=== PATIENT | female | born 1955 ===

== ENCOUNTER 2017-01-31 13:47 | Inpatient (IN) | payer OTHER ==
[2017-01-31 13:55] VITALS: BMI 34.3
[2017-01-31] MEDS ORDERED: Oxycodone/Acetaminophen 5/325 mg Tab PO STA (14:10)
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
[2017-01-31 15:43] LABS: ADD MANUAL DIFF? NO
[2017-01-31 15:52] LABS: BASO # 0.03 K/mm3 (0.0-2.0); BASO % 0.2 % (0.0-3.0); EOS # 0.1 (0.0-0.7); EOS % 0.7 % (1.5-5.0); GRAN # 13.07 (1.4-6.5); LYMPH # 2.1 (1.2-3.4); LYMPH % 12.7 % (22.0-35.0); MEAN CORPUSCULAR HEMOGLOBIN 29.2 pg (25.0-35.0); MEAN CORPUSCULAR HGB CONC 33.6 g/dl (31.0-37.0); MEAN PLATELET VOLUME 9.9 fl (7.0-11.0); MONO # 0.9 (0.1-0.6); MONO % 5.4 % (1.0-6.0); PLATELET COUNT 359 10^3/uL (120.0-450.0); RED CELL DISTRIBUTION WIDTH 13.6 % (11.5-14.5); WHITE BLOOD COUNT 16.1 10^3/ul (4.5-11.0)
[2017-01-31 15:58] LABS: ALKALINE PHOSPHATASE 86 U/L (38-133); ALT/SGPT 39 U/L (7-56); AST/SGOT 37 U/L (15-39); BILIRUBIN,TOTAL 0.7 mg/dL (0.2-1.3); BLOOD UREA NITROGEN 18 mg/dL (7-21); CALCIUM 9.8 mg/dL (8.4-10.5); CARBON DIOXIDE 25 mmol/L (21-33); CHLORIDE 101 mmol/L (98-107); GFR AFRICAN-AMERICAN > 60; GLUCOSE,RANDOM 107 mg/dL (70-110); INR 0.96 (0.93-1.08); POTASSIUM 4.1 mmol/L (3.6-5.0); SODIUM 138 mmol/L (132-148); TOTAL PROTEIN 8.6 g/dL (5.8-8.3)
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
[2017-01-31] MEDS ORDERED: HYDROmorphone 1 mg/ml ISec IVP STA (17:32)
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
[2017-01-31] MEDS: Sodium Chloride 0.45% 1,000 ML IV SCH (20:48)
[2017-01-31] MEDS: HYDROmorphone 2 mg/ml ISec IVP PRN (20:48)
[2017-02-01] MEDS: HYDROmorphone 2 mg/ml ISec IVP PRN ×7 (00:46→20:09)
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
[2017-02-01 07:07] LABS: HEMATOCRIT 34.3 % (36.0-48.0); MEAN CELL VOLUME 88.2 fL (80.0-105.0); MEAN CORPUSCULAR HGB CONC 32.9 g/dl (31.0-37.0); MEAN PLATELET VOLUME 9.7 fl (7.0-11.0); RED CELL DISTRIBUTION WIDTH 14.2 % (11.5-14.5); WHITE BLOOD COUNT 9.7 10^3/ul (4.5-11.0)
[2017-02-01 07:42] LABS: ALKALINE PHOSPHATASE 103 U/L (38-133); ALT/SGPT 91 U/L (7-56); AST/SGOT 115 U/L (15-39); BILIRUBIN,TOTAL 0.9 mg/dL (0.2-1.3); BLOOD UREA NITROGEN 18 mg/dL (7-21); CARBON DIOXIDE 27 mmol/L (21-33); CHLORIDE 104 mmol/L (95-110); GFR AFRICAN-AMERICAN > 60; GLUCOSE,RANDOM 109 mg/dL (70-110); POTASSIUM 4.4 mmol/L (3.6-5.0); SODIUM 140 mmol/L (132-148); TOTAL PROTEIN 7.9 g/dL (5.8-8.3)
[2017-02-01 07:45] LABS: URINE BILIRUBIN NEGATIVE (NEGATIVE); URINE BLOOD MODERATE (NEGATIVE); URINE GLUCOSE (UA) NEGATIVE (NEGATIVE); URINE KETONE NEGATIVE (NEGATIVE); URINE LEUKOCYTE ESTERASE NEGATIVE Leu/uL (NEGATIVE); URINE PROTEIN NEGATIVE mg/dL (<30 mg/dL); URINE UROBILINOGEN 0.2 E.U./dL (<1 E.U./dL)
[2017-02-01 07:52] LABS: URINE APPEARANCE SL CLOUDY (CLEAR); URINE COLOR YELLOW (YELLOW)
[2017-02-01 07:53] LABS: URINE WBC NEGATIVE /hpf (0-6)
--- NOTE | 2017-02-01 09:04 | RAD ---
PROCEDURE: CHEST RADIOGRAPH, 1 VIEW HISTORY: pre op COMPARISON: None available. FINDINGS: LUNGS: Clear. PLEURA: No pneumothorax or pleural fluid seen. CARDIOVASCULAR: Normal. OSSEOUS STRUCTURES: No significant abnormalities. VISUALIZED UPPER ABDOMEN: Normal. OTHER FINDINGS: None. IMPRESSION: No active disease.
[2017-02-01] MEDS: cefTRIAXone 1 gm 1 GM/100 ML BAG IVPB SCH (09:42)
--- NOTE | 2017-02-01 09:53 | CT ---
PROCEDURE: CT of the left elbow HISTORY: CT scan Left elbow, preop planning COMPARISON: 01/31/2017 TECHNIQUE: Axial imaging with sagittal and coronal reconstruction and 3D reconstruction FINDINGS: There is a comminuted displaced fracture of the proximal shaft of the ulna. The fracture does not extend into the articular surface. There is a displaced fracture of the radial head as well as dislocation of the radial capitellar joint. IMPRESSION: As above
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
--- NOTE | 2017-02-01 16:52 | CARD ---
APPROVED REPORT EKG Measurement Heart [id number] <Conclusion> Sinus tachycardia Otherwise normal ECG
[2017-02-02] MEDS: HYDROmorphone 2 mg/ml ISec IVP PRN ×2 (02:38→20:14)
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
[2017-02-02] MEDS: cefTRIAXone 1 gm 1 GM/100 ML BAG IVPB SCH (10:09)
[2017-02-02 10:51] LABS: HEMATOCRIT 33.8 % (36.0-48.0); MEAN CELL VOLUME 91.1 fL (80.0-105.0); MEAN CORPUSCULAR HEMOGLOBIN 29.1 pg (25.0-35.0); MEAN PLATELET VOLUME 9.7 fl (7.0-11.0); WHITE BLOOD COUNT 13.4 10^3/ul (4.5-11.0)
[2017-02-02] MEDS ORDERED: Midazolam 2 MG/2 ML VIAL ONE (10:57)
[2017-02-02] MEDS ORDERED: Propofol 10 mg/ml Inj (20 ML) ONE (10:57)
[2017-02-02] MEDS ORDERED: Rocuronium 10 mg/ml (5 ml) ONE ×2 (10:58→12:26)
[2017-02-02 11:02] LABS: ALKALINE PHOSPHATASE 90 U/L (38-133); ALT/SGPT 64 U/L (7-56); AST/SGOT 59 U/L (15-39); BILIRUBIN,TOTAL 0.9 mg/dL (0.2-1.3); BLOOD UREA NITROGEN 10 mg/dL (7-21); CALCIUM 8.8 mg/dL (8.4-10.5); CARBON DIOXIDE 33 mmol/L (21-33); CHLORIDE 93 mmol/L (98-107); GFR AFRICAN-AMERICAN > 60; GLUCOSE,RANDOM 96 mg/dL (70-110); POTASSIUM 4.3 mmol/L (3.6-5.0); SODIUM 134 mmol/L (132-148); TOTAL PROTEIN 7.7 g/dL (5.8-8.3)
[2017-02-02] MEDS ORDERED: Sevoflurane - Inhalation Anesthetic Liq (250 ml) ONE (11:03)
[2017-02-02] MEDS ORDERED: Lactated Ringer's 1,000 ML IV SCH (12:46)
[2017-02-02] MEDS ORDERED: HYDROmorphone 1 mg/ml ISec IVP PRN (12:46)
[2017-02-02] MEDS ORDERED: Glycopyrrolate 0.2 mg/ml (2ml vial) ONE (12:58)
[2017-02-02] MEDS ORDERED: Neostigmine Methylsulfate 3mg/3ml Syringe IV ONE (12:58)
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
[2017-02-02] MEDS ORDERED: HYDROmorphone 2 mg/ml ISec ONE (14:36)
[2017-02-02] MEDS ORDERED: Bupivacaine 0.5% Inj(30mL) ONE (14:36)
[2017-02-02] MEDS ORDERED: HYDROmorphone 0.2 mg/ml (25ml) 25 ML IV ONE (15:26)
[2017-02-02] MEDS ORDERED: HYDROmorphone 0.2 mg/ml (25ml) 25 ML IV PRN (15:54)
[2017-02-02] MEDS: Sodium Chloride 0.45% 1,000 ML IV SCH (23:37)
[2017-02-03] MEDS: HYDROmorphone 2 mg/ml ISec IVP PRN ×4 (03:46→15:20)
--- NOTE | 2017-02-03 07:09 | RAD ---
PROCEDURE: Radiographs of the left elbow. HISTORY: s/p ORIF COMPARISON: No prior. FINDINGS: BONES: Status post ORIF with proximal ulna posterior fixation plate with multiple screws in place. Proximal radial prosthesis in place. JOINTS: Normal. No osteoarthritis. SOFT TISSUES: Normal. JOINT EFFUSION: None. OTHER FINDINGS: Postoperative changes with surgical jose m posteriorly. Cast obscures bone detail. IMPRESSION: Good anatomic alignment status post ORIF of proximal radius and ulnar fractures.
[2017-02-03 08:54] LABS: ALKALINE PHOSPHATASE 86 U/L (38-133); ALT/SGPT 73 U/L (7-56); AST/SGOT 141 U/L (15-39); BILIRUBIN,TOTAL 0.9 mg/dL (0.2-1.3); BLOOD UREA NITROGEN 10 mg/dL (7-21); CALCIUM 8.4 mg/dL (8.4-10.5); CARBON DIOXIDE 33 mmol/L (21-33); CHLORIDE 94 mmol/L (95-110); GFR AFRICAN-AMERICAN > 60; GLUCOSE,RANDOM 113 mg/dL (70-110); POTASSIUM 4.2 mmol/L (3.6-5.0); SODIUM 134 mmol/L (132-148); TOTAL PROTEIN 7.2 g/dL (5.8-8.3)
--- NOTE | 2017-02-03 09:43 | RAD ---
HISTORY: eval COMPARISON: 02/01/2017 FINDINGS: LUNGS: Bilateral interstitial changes with infiltrates in the right midlung zone and right lower lung zone which are nonspecific. No significant interval change. PLEURA: No significant pleural effusion identified, no pneumothorax apparent. CARDIOVASCULAR: Normal. OSSEOUS STRUCTURES: No significant abnormalities. VISUALIZED UPPER ABDOMEN: Normal. OTHER FINDINGS: None. IMPRESSION: Bilateral interstitial changes with infiltrates in the right midlung zone and right lower lung zone which are nonspecific. No significant interval change.
[2017-02-03] MEDS: cefTRIAXone 1 gm 1 GM/100 ML BAG IVPB SCH (09:48)
[2017-02-03 10:02] LABS: HEMATOCRIT 33.4 % (36.0-48.0); MEAN CELL VOLUME 90.5 fL (80.0-105.0); MEAN CORPUSCULAR HEMOGLOBIN 29.3 pg (25.0-35.0); MEAN CORPUSCULAR HGB CONC 32.3 g/dl (31.0-37.0); RED CELL DISTRIBUTION WIDTH 13.7 % (11.5-14.5); WHITE BLOOD COUNT 14.3 10^3/ul (4.5-11.0)
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
--- NOTE | 2017-02-03 15:01 | PCM.SURG1 ---
Surgeon's Initial Post Op Note - Surgeon's Notes Surgeon: Gustavo Maintenance Mechanic: Francisca Type of Anesthesia: General Endo Pre-Operative Diagnosis: Left displaced radial head and proximal ulna fracture Operative Findings: see dictation Post-Operative Diagnosis: same Operation Performed: ORIF proximal ulnar and radial head replacement Specimen/Specimens Removed: radial head Estimated Blood Loss: EBL {In ML}: 50 Date of Surgery/Procedure: 02/02/17 Time of Surgery/Procedure: 11:00
[2017-02-03] MEDS: Cefepime 1gm in NS 100ml 1 GM/100 ML BAG IVPB SCH ×2 (15:25→21:20)
[2017-02-04] MEDS: HYDROmorphone 2 mg/ml ISec IVP PRN ×5 (02:24→19:50)
[2017-02-04] MEDS: Cefepime 1gm in NS 100ml 1 GM/100 ML BAG IVPB SCH ×3 (05:20→22:09)
[2017-02-04 07:26] LABS: ALB/GLOB RATIO 0.9 (1.1-1.8); ALKALINE PHOSPHATASE 87 U/L (38-133); ALT/SGPT 81 U/L (7-56); AST/SGOT 153 U/L (15-39); BILIRUBIN,TOTAL 0.9 mg/dL (0.2-1.3); BLOOD UREA NITROGEN 12 mg/dL (7-21); CALCIUM 8.5 mg/dL (8.4-10.5); CARBON DIOXIDE 34 mmol/L (21-33); CHLORIDE 92 mmol/L (98-107); GFR AFRICAN-AMERICAN > 60; GLUCOSE,RANDOM 120 mg/dL (70-110); SODIUM 134 mmol/L (132-148); TOTAL PROTEIN 7.4 g/dL (5.8-8.3)
[2017-02-04 07:44] LABS: HEMATOCRIT 31.9 % (36.0-48.0); MEAN CELL VOLUME 91.7 fL (80.0-105.0); MEAN CORPUSCULAR HGB CONC 31.7 g/dl (31.0-37.0); MEAN PLATELET VOLUME 10.1 fl (7.0-11.0); RED CELL DISTRIBUTION WIDTH 13.7 % (11.5-14.5); WHITE BLOOD COUNT 16.6 10^3/ul (4.5-11.0)
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
--- NOTE | 2017-02-04 09:42 | RAD ---
PROCEDURE: Fluoroscopy up to 1 hour HISTORY: ORIF LT ELBOW COMPARISON: TECHNIQUE: Fluoroscopy was provided in the operating room. 45 seconds of fluoroscopy was utilized. Five images were submitted FINDINGS: The study shows placement of a prosthetic radial head as well as a plate and multiple screws through the ulna. There is anatomic alignment IMPRESSION: As above
--- NOTE | 2017-02-04 09:57 | RAD ---
HISTORY: pneumonia COMPARISON: 02/03/2017 TECHNIQUE: Chest PA and lateral FINDINGS: LUNGS: There is linear platelike atelectasis in the right lung. The lungs are otherwise clear PLEURA: No significant pleural effusion identified. No pneumothorax apparent. CARDIOVASCULAR: Normal. OSSEOUS STRUCTURES: No significant abnormalities. VISUALIZED UPPER ABDOMEN: Normal. OTHER FINDINGS: None. IMPRESSION: Linear atelectasis in the right lung. No focal consolidation
--- NOTE | 2017-02-04 10:22 | CT ---
PROCEDURE: CT of the left knee without contrast HISTORY: fracture COMPARISON: No prior similar study available for comparison. TECHNIQUE: Axial and reformatted coronal and sagittal CT images of the left knee were obtained without IV contrast administration. Total exam DLP: 226.3. FINDINGS: There is comminuted nondisplaced fracture at the mid and lateral aspect of the left tibial plateau and proximal left tibia extending to the articular surface adjacent to the tibial eminences. There is also acute slightly displaced fracture at the proximal head of the left fibula. There are advanced osteoarthritic changes seen at the left knee. There is small to moderate size left knee joint effusion. IMPRESSION: Acute comminuted fracture at the mid to lateral aspect of the left tibial plateau and proximal tibial head. Slightly displaced comminuted fracture at the proximal head of the left fibula. Small to moderate left knee joint effusion. Advanced osteoarthritic changes.
[2017-02-04 13:00] LABS: URINE BILIRUBIN NEGATIVE (NEGATIVE); URINE BLOOD LARGE (NEGATIVE); URINE GLUCOSE (UA) NEGATIVE (NEGATIVE); URINE KETONE NEGATIVE (NEGATIVE); URINE LEUKOCYTE ESTERASE NEGATIVE Leu/uL (NEGATIVE); URINE PROTEIN TRACE mg/dL (<30 mg/dL); URINE UROBILINOGEN 0.2 E.U./dL (<1 E.U./dL)
[2017-02-04 13:01] LABS: URINE APPEARANCE CLEAR (CLEAR); URINE COLOR YELLOW (YELLOW)
[2017-02-04 13:10] LABS: URINE BACTERIA TRACE (NEG); URINE EPITHELIAL CELLS 0 - 2 /hpf (0-5); URINE RBC 15 - 20 /hpf (0-2); URINE WBC 0 - 2 /hpf (0-6)
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
[2017-02-05] MEDS: HYDROmorphone 2 mg/ml ISec IVP PRN ×6 (01:03→18:39)
[2017-02-05] MEDS: Cefepime 1gm in NS 100ml 1 GM/100 ML BAG IVPB SCH ×3 (06:10→21:51)
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
[2017-02-05] MEDS: Enoxaparin 40 mg Syringe SC SCH (10:05)
--- NOTE | 2017-02-05 11:47 | US ---
HISTORY: Leg pain and swelling. Evaluate for DVT PHYSICIAN(S): Jerrell Leslie MD. TECHNIQUE: Duplex sonography and color-flow Doppler with graded compression were used to evaluate the deep venous systems of both lower extremities. The exam is limited by body habitus and edema FINDINGS: The visualized deep venous systems of both lower extremities are sonographically normal and compressible. Normal wave forms and augmentation are seen. There is no sonographic evidence for deep venous thrombosis in the visualized segments of both lower extremities. IMPRESSION: No sonographic evidence for deep venous thrombosis in the visualized segments of both lower extremities.
[2017-02-05] MEDS: Sodium Chloride 0.45% 1,000 ML IV SCH (18:53)
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
[2017-02-06] MEDS: HYDROmorphone 2 mg/ml ISec IVP PRN ×7 (00:55→21:32)
[2017-02-06] MEDS: Cefepime 1gm in NS 100ml 1 GM/100 ML BAG IVPB SCH ×3 (05:47→21:34)
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
[2017-02-06] MEDS: Enoxaparin 40 mg Syringe SC SCH (09:21)
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
[2017-02-06] MEDS: Sodium Chloride 0.45% 1,000 ML IV SCH (17:56)
[2017-02-07] MEDS: HYDROmorphone 2 mg/ml ISec IVP PRN ×7 (00:58→21:40)
[2017-02-07] MEDS: Cefepime 1gm in NS 100ml 1 GM/100 ML BAG IVPB SCH ×3 (06:59→21:41)
[2017-02-07 07:37] LABS: HEMATOCRIT 28.2 % (36.0-48.0); MEAN CELL VOLUME 87.3 fL (80.0-105.0); MEAN CORPUSCULAR HEMOGLOBIN 29.1 pg (25.0-35.0); MEAN CORPUSCULAR HGB CONC 33.3 g/dl (31.0-37.0); MEAN PLATELET VOLUME 8.9 fl (7.0-11.0); RED CELL DISTRIBUTION WIDTH 13.7 % (11.5-14.5); WHITE BLOOD COUNT 9.5 10^3/ul (4.5-11.0)
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
[2017-02-07 07:49] LABS: ALB/GLOB RATIO 0.8 (1.1-1.8); ALKALINE PHOSPHATASE 114 U/L (38-133); ALT/SGPT 81 U/L (7-56); AST/SGOT 78 U/L (15-39); BILIRUBIN,TOTAL 0.8 mg/dL (0.2-1.3); BLOOD UREA NITROGEN 12 mg/dL (7-21); CARBON DIOXIDE 32 mmol/L (21-33); CHLORIDE 95 mmol/L (98-107); GFR AFRICAN-AMERICAN > 60; GLUCOSE,RANDOM 100 mg/dL (70-110); SODIUM 136 mmol/L (132-148); TOTAL PROTEIN 6.9 g/dL (5.8-8.3)
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
[2017-02-07] MEDS: Enoxaparin 40 mg Syringe SC SCH (11:15)
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
[2017-02-08] MEDS: HYDROmorphone 2 mg/ml ISec IVP PRN ×7 (02:05→21:39)
[2017-02-08] MEDS: Cefepime 1gm in NS 100ml 1 GM/100 ML BAG IVPB SCH ×3 (05:19→21:38)
[2017-02-08 07:24] LABS: HEMATOCRIT 29.2 % (36.0-48.0); MEAN CELL VOLUME 87.4 fL (80.0-105.0); MEAN CORPUSCULAR HEMOGLOBIN 28.7 pg (25.0-35.0); MEAN CORPUSCULAR HGB CONC 32.9 g/dl (31.0-37.0); MEAN PLATELET VOLUME 8.9 fl (7.0-11.0); WHITE BLOOD COUNT 10.4 10^3/ul (4.5-11.0)
[2017-02-08 07:42] LABS: ALKALINE PHOSPHATASE 111 U/L (38-133); ALT/SGPT 77 U/L (7-56); AST/SGOT 69 U/L (15-39); BILIRUBIN,TOTAL 0.7 mg/dL (0.2-1.3); BLOOD UREA NITROGEN 12 mg/dL (7-21); CALCIUM 9.1 mg/dL (8.4-10.5); CARBON DIOXIDE 31 mmol/L (21-33); CHLORIDE 97 mmol/L (98-107); GFR AFRICAN-AMERICAN > 60; GLUCOSE,RANDOM 105 mg/dL (70-110); SODIUM 136 mmol/L (132-148); TOTAL PROTEIN 6.7 g/dL (5.8-8.3)
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
[2017-02-08] MEDS: Enoxaparin 40 mg Syringe SC SCH (10:18)
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
[2017-02-09] MEDS: HYDROmorphone 2 mg/ml ISec IVP PRN ×7 (03:00→22:00)
[2017-02-09] MEDS: Cefepime 1gm in NS 100ml 1 GM/100 ML BAG IVPB SCH (05:04)
[2017-02-09 08:21] LABS: MEAN CELL VOLUME 88.4 fL (80.0-105.0); MEAN CORPUSCULAR HGB CONC 31.7 g/dl (31.0-37.0); MEAN PLATELET VOLUME 8.8 fl (7.0-11.0); WHITE BLOOD COUNT 10.1 10^3/ul (4.5-11.0)
[2017-02-09 08:29] LABS: ALB/GLOB RATIO 0.8 (1.1-1.8); ALKALINE PHOSPHATASE 124 U/L (38-133); ALT/SGPT 88 U/L (7-56); AST/SGOT 111 U/L (15-39); BILIRUBIN,TOTAL 0.8 mg/dL (0.2-1.3); BLOOD UREA NITROGEN 12 mg/dL (7-21); CALCIUM 8.9 mg/dL (8.4-10.5); CARBON DIOXIDE 33 mmol/L (21-33); CHLORIDE 96 mmol/L (95-110); GFR AFRICAN-AMERICAN > 60; GLUCOSE,RANDOM 96 mg/dL (70-110); POTASSIUM 4.1 mmol/L (3.6-5.0); SODIUM 136 mmol/L (132-148); TOTAL PROTEIN 6.9 g/dL (5.8-8.3)
[2017-02-09] MEDS: Enoxaparin 40 mg Syringe SC SCH (09:04)
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
[2017-02-09] MEDS: Silver Sulfadiazine 1% Cream (20 gm) TOP SCH ×2 (11:42→19:04)
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
[2017-02-09] MEDS: Sodium Chloride 0.45% 1,000 ML IV SCH (19:04)
[2017-02-10] MEDS: HYDROmorphone 2 mg/ml ISec IVP PRN ×3 (02:35→09:04)
[2017-02-10 08:29] LABS: MEAN CELL VOLUME 88.5 fL (80.0-105.0); MEAN CORPUSCULAR HEMOGLOBIN 28.3 pg (25.0-35.0); MEAN PLATELET VOLUME 8.9 fl (7.0-11.0); RED CELL DISTRIBUTION WIDTH 14.1 % (11.5-14.5); WHITE BLOOD COUNT 9.6 10^3/ul (4.5-11.0)
[2017-02-10 08:33] LABS: ALB/GLOB RATIO 0.8 (1.1-1.8); ALKALINE PHOSPHATASE 139 U/L (38-133); ALT/SGPT 91 U/L (7-56); AST/SGOT 83 U/L (15-39); BILIRUBIN,TOTAL 0.9 mg/dL (0.2-1.3); BLOOD UREA NITROGEN 12 mg/dL (7-21); CARBON DIOXIDE 32 mmol/L (21-33); CHLORIDE 95 mmol/L (98-107); GFR AFRICAN-AMERICAN > 60; GLUCOSE,RANDOM 94 mg/dL (70-110); POTASSIUM 4.4 mmol/L (3.6-5.0); SODIUM 134 mmol/L (132-148)
[2017-02-10] MEDS: Enoxaparin 40 mg Syringe SC SCH (09:03)
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
[2017-02-10] MEDS: POLYETHYLENE GLYCOL 3350 17 GM/Dose PACKET PO SCH ×2 (10:25→22:05)
[2017-02-10] MEDS: Silver Sulfadiazine 1% Cream (20 gm) TOP SCH ×2 (10:30→17:05)
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
[2017-02-10] MEDS: Sodium Chloride 0.45% 1,000 ML IV SCH (19:16)
--- NOTE | 2017-02-10 23:44 | CP.PCM.PN ---
Subjective - Date & Time of Evaluation Date of Evaluation: 02/10/17 Time of Evaluation: 23:43 - Subjective Subjective: S:Patient was seen at bedside. She had requested a sleeping pill. Has no other complaints now. Denies chest pain, sob. Pertinent medical record was reviewed. O: Last Vital Signs 3 Temp 98.4 F 02/10/17 18:44 Pulse 84 02/10/17 18:44 Resp 16 02/10/17 18:44 BP 115/74 02/10/17 18:44 Pulse Ox 97 02/10/17 18:34 Obese person not in distress. Alert, awake. LUNGS: Normal breathing pattern. NEURO: Speech normal. A:Adjustment Insomnia. P:Benadryl 50 mg PO x 1. Objective - Vital Signs/Intake and Output Vital Signs (last 24 hours): Temp Pulse Resp BP Pulse Ox 98.4 F 84 16 115/74 97 02/10/17 18:44 02/10/17 18:44 02/10/17 18:44 02/10/17 18:44 02/10/17 18:34 Intake and Output: 02/10/17 02/11/17 18:59 06:59 Intake Total 800 720 Output Total 1300 1700 Balance -500 -980 - Medications Medications: Current Medications Acetaminophen (Tylenol 325mg Tab) 650 mg PO Q4 PRN PRN Reason: Fever >100.4 F Last Admin: 02/04/17 20:35 Dose: 650 mg Docusate Sodium (Colace) 100 mg PO BID [facility] Last Admin: 02/10/17 17:05 Dose: 100 mg Enoxaparin Sodium (Lovenox) 40 mg SC DAILY [facility] PRN Reason: Protocol Last Admin: 02/10/17 09:03 Dose: 40 mg Hydromorphone HCl (Dilaudid) 2 mg IVP Q2H PRN PRN Reason: Pain, moderate (4-7) Last Admin: 02/10/17 09:04 Dose: 2 mg Sodium Chloride (Sodium Chloride 0.45%) 1,000 mls @ 40 mls/hr IV .Q24H [facility] Last Admin: 02/10/17 19:16 Dose: 40 mls/hr Metoclopramide HCl (Reglan) 10 mg IV ONCE PRN PRN Reason: Nausea/Vomiting Ondansetron HCl (Zofran Inj) 4 mg IVP Q6H PRN PRN Reason: Nausea/Vomiting Last Admin: 02/09/17 09:45 Dose: 4 mg Polyethylene Glycol (Miralax) 17 gm PO DAILY [facility] Last Admin: 02/10/17 22:05 Dose: 17 gm Silver Sulfadiazine (Silvadene 1% 20 Gm) 0 ea TOP BID [facility] Last Admin: 02/10/17 17:05 Dose: 1 applic - Labs Labs: 02/10/17 07:30 02/10/17 07:00 PT 10.4 Seconds (9.9-11.8) 01/31/17 15:37 INR 0.96 (0.93-1.08) 01/31/17 15:37 APTT 26.0 Seconds (23.7-30.8) 01/31/17 15:37
[2017-02-11 07:34] LABS: HEMATOCRIT 30.1 % (36.0-48.0); MEAN CELL VOLUME 87.2 fL (80.0-105.0); MEAN CORPUSCULAR HEMOGLOBIN 28.1 pg (25.0-35.0); MEAN CORPUSCULAR HGB CONC 32.2 g/dl (31.0-37.0); MEAN PLATELET VOLUME 8.8 fl (7.0-11.0); RED CELL DISTRIBUTION WIDTH 14.3 % (11.5-14.5); WHITE BLOOD COUNT 11.3 10^3/ul (4.5-11.0)
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
[2017-02-11 07:53] LABS: ALB/GLOB RATIO 0.9 (1.1-1.8); ALKALINE PHOSPHATASE 146 U/L (38-133); ALT/SGPT 86 U/L (7-56); AST/SGOT 60 U/L (15-39); BILIRUBIN,TOTAL 0.8 mg/dL (0.2-1.3); BLOOD UREA NITROGEN 12 mg/dL (7-21); CALCIUM 9.3 mg/dL (8.4-10.5); CARBON DIOXIDE 32 mmol/L (21-33); CHLORIDE 98 mmol/L (98-107); GFR AFRICAN-AMERICAN > 60; GLUCOSE,RANDOM 98 mg/dL (70-110); SODIUM 136 mmol/L (132-148); TOTAL PROTEIN 7.4 g/dL (5.8-8.3)
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
[2017-02-11] MEDS: Silver Sulfadiazine 1% Cream (20 gm) TOP SCH ×2 (09:49→18:28)
[2017-02-11] MEDS: POLYETHYLENE GLYCOL 3350 17 GM/Dose PACKET PO SCH (09:49)
[2017-02-11] MEDS: Enoxaparin 40 mg Syringe SC SCH (09:49)
[2017-02-11] MEDS: Sodium Chloride 0.45% 1,000 ML IV SCH (18:29)
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
[2017-02-12 07:24] LABS: HEMATOCRIT 29.8 % (36.0-48.0); MEAN CELL VOLUME 87.1 fL (80.0-105.0); MEAN CORPUSCULAR HEMOGLOBIN 28.9 pg (25.0-35.0); MEAN CORPUSCULAR HGB CONC 33.2 g/dl (31.0-37.0); MEAN PLATELET VOLUME 8.6 fl (7.0-11.0); RED CELL DISTRIBUTION WIDTH 14.2 % (11.5-14.5); WHITE BLOOD COUNT 9.9 10^3/ul (4.5-11.0)
[2017-02-12 07:34] LABS: ALB/GLOB RATIO 0.8 (1.1-1.8); ALKALINE PHOSPHATASE 136 U/L (38-133); ALT/SGPT 88 U/L (7-56); AST/SGOT 60 U/L (15-39); BILIRUBIN,TOTAL 0.7 mg/dL (0.2-1.3); BLOOD UREA NITROGEN 12 mg/dL (7-21); CALCIUM 9.6 mg/dL (8.4-10.5); CARBON DIOXIDE 29 mmol/L (21-33); CHLORIDE 101 mmol/L (98-107); GFR AFRICAN-AMERICAN > 60; GLUCOSE,RANDOM 95 mg/dL (70-110); POTASSIUM 3.9 mmol/L (3.6-5.0); SODIUM 139 mmol/L (132-148); TOTAL PROTEIN 7.6 g/dL (5.8-8.3)
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
[2017-02-12] MEDS: Enoxaparin 40 mg Syringe SC SCH (09:28)
[2017-02-12] MEDS: POLYETHYLENE GLYCOL 3350 17 GM/Dose PACKET PO SCH (09:28)
[2017-02-12] MEDS: Silver Sulfadiazine 1% Cream (20 gm) TOP SCH (09:29)
[2017-02-12] MEDS ORDERED: Bupivacaine 0.5% Inj(30mL) ONE (10:39)
[2017-02-12] MEDS ORDERED: Propofol 10 mg/ml Inj (20 ML) ONE (11:23)
[2017-02-12] MEDS ORDERED: Midazolam 2 MG/2 ML VIAL ONE (11:24)
[2017-02-12] MEDS ORDERED: Succinylcholine 200 mg/10 ml Inj IV ONE (11:35)
[2017-02-12] MEDS ORDERED: Rocuronium 10 mg/ml (5 ml) ONE (11:35)
[2017-02-12] MEDS ORDERED: Morphine 4 mg/ml ISec ONE (13:01)
[2017-02-12] MEDS ORDERED: Neostigmine Methylsulfate 3mg/3ml Syringe IV ONE (13:13)
[2017-02-12] MEDS ORDERED: Lactated Ringer's 1,000 ML IV SCH (13:52)
[2017-02-12] MEDS ORDERED: HYDROmorphone 0.5 mg/0.5 ml ISec ONE ×4 (13:52→14:47)
[2017-02-12] MEDS: HYDROmorphone 0.5 mg/0.5 ml ISec IVP PRN ×2 (13:52→14:07)
[2017-02-12] MEDS ORDERED: HYDROmorphone 1 mg/ml ISec IVP ONE (14:15)
[2017-02-12] MEDS ORDERED: HYDROmorphone 1 mg/ml ISec ONE (14:15)
[2017-02-12] MEDS ORDERED: HYDROmorphone 1 mg/ml ISec IVP STA (14:16)
--- NOTE | 2017-02-12 14:16 | PCM.SURG1 ---
Surgeon's Initial Post Op Note - Surgeon's Notes Surgeon: Dr. Gustavo GIBSON Development Educator: Dr. Francisca GIBSON, Dr Huitron DPM PGY-1 Type of Anesthesia: General Endo Pre-Operative Diagnosis: left tibial plateau fracture Operative Findings: see dictation Post-Operative Diagnosis: same Operation Performed: left tibia ORIF Specimen/Specimens Removed: same Estimated Blood Loss: EBL {In ML}: 100 Blood Products Given: N/A Drains Used: No Drains Post-Op Condition: Good Date of Surgery/Procedure: 02/12/17 Time of Surgery/Procedure: 11:00
[2017-02-12] MEDS ORDERED: HYDROmorphone 0.5 mg/0.5 ml ISec IVP ONE ×2 (14:31→14:47)
--- NOTE | 2017-02-12 15:05 | RAD ---
PROCEDURE: Left knee two views HISTORY: s/p left tibia ORIF COMPARISON: TECHNIQUE: Four views FINDINGS: Internal fixation proximal tibial fracture. Anatomic alignment IMPRESSION: As above
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
[2017-02-12] MEDS: HYDROmorphone 2 mg/ml ISec IVP PRN ×3 (15:35→21:24)
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
--- NOTE | 2017-02-12 17:33 | PCM.SURG1 ---
Surgeon's Initial Post Op Note - Surgeon's Notes Surgeon: dolly Abrasive Water Jet Cutter Operator: abundio Type of Anesthesia: General Endo Pre-Operative Diagnosis: left tibial plateau fracture Operative Findings: see dictation Post-Operative Diagnosis: same Operation Performed: ORFI left tibia Specimen/Specimens Removed: none Estimated Blood Loss: EBL {In ML}: 0 Date of Surgery/Procedure: 02/12/17 Time of Surgery/Procedure: 11:00
[2017-02-12] MEDS: ceFAZolin 1 gm in NS 1 GM/100 ML BAG IVPB SCH (19:11)
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
[2017-02-13] MEDS: HYDROmorphone 2 mg/ml ISec IVP PRN ×8 (00:30→21:12)
[2017-02-13] MEDS: ceFAZolin 1 gm in NS 1 GM/100 ML BAG IVPB SCH (02:30)
[2017-02-13 07:56] LABS: HEMATOCRIT 28.1 % (36.0-48.0); MEAN CELL VOLUME 86.7 fL (80.0-105.0); MEAN CORPUSCULAR HEMOGLOBIN 28.7 pg (25.0-35.0); MEAN CORPUSCULAR HGB CONC 33.1 g/dl (31.0-37.0); MEAN PLATELET VOLUME 8.9 fl (7.0-11.0); RED CELL DISTRIBUTION WIDTH 14.1 % (11.5-14.5); WHITE BLOOD COUNT 11.2 10^3/ul (4.5-11.0)
[2017-02-13 08:05] LABS: ALB/GLOB RATIO 0.9 (1.1-1.8); ALKALINE PHOSPHATASE 147 U/L (38-133); ALT/SGPT 80 U/L (7-56); AST/SGOT 58 U/L (15-39); BILIRUBIN,TOTAL 0.9 mg/dL (0.2-1.3); BLOOD UREA NITROGEN 11 mg/dL (7-21); CARBON DIOXIDE 27 mmol/L (21-33); CHLORIDE 98 mmol/L (98-107); GFR AFRICAN-AMERICAN > 60; GLUCOSE,RANDOM 97 mg/dL (70-110); POTASSIUM 4.1 mmol/L (3.6-5.0); SODIUM 135 mmol/L (132-148)
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
[2017-02-13] MEDS: Enoxaparin 40 mg Syringe SC SCH (12:20)
[2017-02-13] MEDS: Sodium Chloride 0.45% 1,000 ML IV SCH (18:19)
--- NOTE | 2017-02-14 22:25 | PN ---
DATE: 02/14/2017 I saw her resting comfortably in bed. She is status postop day #2 for the left leg. She already had surgery on the left arm. She needs to get physical therapy and moving. She agrees with me. She wants to start getting out of bed. She needs physical therapy recommendation by physical therapy. I discussed this with case management to hopefully get her into an [facility] in [facility], like [facility], [facility], [facility], or perhaps even formerly [facility]. I saw earlier this morning at [facility]. The computers were down so I am dictating tonight at [facility]. PHYSICAL EXAMINATION: GENERAL: She is comfortable, smiling, in bed, eating. VITAL SIGNS: Are 97.8 temp, 92 pulse, 94/60 blood pressure, 20 respiratory rate , 96% O2 sat on room air. HEENT: Head is atraumatic, normocephalic. Her throat is moist. NECK: Supple. HEART: Regular rate. LUNGS: Decreased breath sounds, but clear. I asked her to use incentive spirometry every hour, 10 breaths, because she just had 2 surgeries and she is not moving that much. She has to keep her lungs open to prevent pneumonia. ABDOMEN: Soft, obese, nontender, positive bowel sounds. She was constipated once. She has to and decrease the pain meds, if possible, and increase more water and movement. EXTREMITIES: The right leg has no edema. The left leg is bandaged. The right arm is bandaged. Status post 2 surgeries. MEDICATIONS: She is currently on Colace, Dilaudid, Lovenox, MiraLAX, Reglan, Silvadene, IV fluids, Tylenol, and Zofran. LABORATORY DATA: For some reason, labs were not done today. She had 11.7 hemoglobin yesterday, hematocrit, with 617 platelets. Sodium 135, potassium 4.1, BUN 11, creatinine 0.6, GFR is greater than 60, sugar is 97, calcium is 9. AST is 58, ALT is 80, alk phos 147, total protein is 7. She is being seen by pulmonology and orthopedics and infectious disease. Will continue with aggressive treatment and care. She is off IV right now. Will check her labs tomorrow. Discussed with case management and hopefully can get her to subacute rehab in the next 24-48 hours. Sreekanth Guerra DO cc: [id number] TT: 02/14/2017 22:24:43 Confirmation # [id number] Dictation # [id number] dn MTDD
[2017-02-14] MEDS: HYDROmorphone 2 mg/ml ISec IVP PRN (23:49)
[2017-02-15] MEDS: HYDROmorphone 2 mg/ml ISec IVP PRN ×5 (05:18→21:47)
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
[2017-02-15] MEDS: Enoxaparin 40 mg Syringe SC SCH (09:53)
[2017-02-15 10:53] LABS: ALB/GLOB RATIO 0.9 (1.1-1.8); ALKALINE PHOSPHATASE 132 U/L (38-133); ALT/SGPT 62 U/L (7-56); AST/SGOT 61 U/L (15-39); BILIRUBIN,TOTAL 0.7 mg/dL (0.2-1.3); BLOOD UREA NITROGEN 8 mg/dL (7-21); CALCIUM 9.2 mg/dL (8.4-10.5); CARBON DIOXIDE 28 mmol/L (21-33); CHLORIDE 97 mmol/L (98-107); GFR AFRICAN-AMERICAN > 60; GLUCOSE,RANDOM 96 mg/dL (70-110); MAGNESIUM 2.2 mg/dL (1.7-2.2); PHOSPHOROUS 4.3 mg/dL (2.5-4.5); POTASSIUM 3.9 mmol/L (3.6-5.0); SODIUM 136 mmol/L (132-148)
[2017-02-15 13:05] LABS: HEMATOCRIT 27.7 % (36.0-48.0); MEAN CELL VOLUME 87.7 fL (80.0-105.0); MEAN CORPUSCULAR HEMOGLOBIN 28.8 pg (25.0-35.0); MEAN CORPUSCULAR HGB CONC 32.9 g/dl (31.0-37.0); MEAN PLATELET VOLUME 9.2 fl (7.0-11.0); RED CELL DISTRIBUTION WIDTH 14.2 % (11.5-14.5); WHITE BLOOD COUNT 10.4 10^3/ul (4.5-11.0)
[2017-02-16] MEDS: HYDROmorphone 2 mg/ml ISec IVP PRN ×6 (03:15→21:11)
[2017-02-16 07:36] LABS: HEMATOCRIT 29.1 % (36.0-48.0); MEAN CELL VOLUME 87.4 fL (80.0-105.0); MEAN CORPUSCULAR HEMOGLOBIN 28.5 pg (25.0-35.0); MEAN CORPUSCULAR HGB CONC 32.6 g/dl (31.0-37.0); MEAN PLATELET VOLUME 8.7 fl (7.0-11.0); WHITE BLOOD COUNT 12.8 10^3/ul (4.5-11.0)
[2017-02-16 07:47] LABS: ALKALINE PHOSPHATASE 128 U/L (38-133); ALT/SGPT 48 U/L (7-56); AST/SGOT 36 U/L (15-39); BILIRUBIN,TOTAL 0.7 mg/dL (0.2-1.3); BLOOD UREA NITROGEN 7 mg/dL (7-21); CALCIUM 9.4 mg/dL (8.4-10.5); CARBON DIOXIDE 29 mmol/L (21-33); CHLORIDE 101 mmol/L (98-107); GFR AFRICAN-AMERICAN > 60; GLUCOSE,RANDOM 97 mg/dL (70-110); POTASSIUM 4.5 mmol/L (3.6-5.0); SODIUM 138 mmol/L (132-148); TOTAL PROTEIN 7.1 g/dL (5.8-8.3)
[2017-02-16] MEDS: Enoxaparin 40 mg Syringe SC SCH (09:47)
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
[2017-02-17] MEDS: HYDROmorphone 2 mg/ml ISec IVP PRN ×5 (01:59→21:05)
[2017-02-17 06:01] LABS: HEMATOCRIT 27.6 % (36.0-48.0); MEAN CELL VOLUME 86.8 fL (80.0-105.0); MEAN CORPUSCULAR HEMOGLOBIN 28.3 pg (25.0-35.0); MEAN CORPUSCULAR HGB CONC 32.6 g/dl (31.0-37.0); MEAN PLATELET VOLUME 8.5 fl (7.0-11.0); RED CELL DISTRIBUTION WIDTH 13.9 % (11.5-14.5); WHITE BLOOD COUNT 9.2 10^3/ul (4.5-11.0)
[2017-02-17 06:17] LABS: ALB/GLOB RATIO 0.9 (1.1-1.8); ALKALINE PHOSPHATASE 122 U/L (38-133); ALT/SGPT 44 U/L (7-56); AST/SGOT 55 U/L (15-39); BILIRUBIN,TOTAL 0.5 mg/dL (0.2-1.3); BLOOD UREA NITROGEN 9 mg/dL (7-21); CARBON DIOXIDE 29 mmol/L (21-33); CHLORIDE 99 mmol/L (98-107); GFR AFRICAN-AMERICAN > 60; GLUCOSE,RANDOM 91 mg/dL (70-110); POTASSIUM 4.1 mmol/L (3.6-5.0); SODIUM 136 mmol/L (132-148)
[2017-02-17] MEDS: Enoxaparin 40 mg Syringe SC SCH (10:28)
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
[2017-02-18] MEDS: HYDROmorphone 2 mg/ml ISec IVP PRN ×5 (01:59→19:29)
[2017-02-18 07:31] LABS: HEMATOCRIT 30.2 % (36.0-48.0); MEAN CELL VOLUME 87.5 fL (80.0-105.0); MEAN CORPUSCULAR HEMOGLOBIN 28.4 pg (25.0-35.0); MEAN CORPUSCULAR HGB CONC 32.5 g/dl (31.0-37.0); MEAN PLATELET VOLUME 8.5 fl (7.0-11.0); RED CELL DISTRIBUTION WIDTH 13.8 % (11.5-14.5); WHITE BLOOD COUNT 7.9 10^3/ul (4.5-11.0)
[2017-02-18 07:50] LABS: ALKALINE PHOSPHATASE 127 U/L (38-133); ALT/SGPT 53 U/L (7-56); AST/SGOT 40 U/L (15-39); BILIRUBIN,TOTAL 0.5 mg/dL (0.2-1.3); BLOOD UREA NITROGEN 11 mg/dL (7-21); CALCIUM 9.6 mg/dL (8.4-10.5); CARBON DIOXIDE 30 mmol/L (21-33); CHLORIDE 99 mmol/L (95-110); GFR AFRICAN-AMERICAN > 60; GLUCOSE,RANDOM 90 mg/dL (70-110); POTASSIUM 4.3 mmol/L (3.6-5.0); SODIUM 137 mmol/L (132-148); TOTAL PROTEIN 7.4 g/dL (5.8-8.3)
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
[2017-02-18] MEDS: Enoxaparin 40 mg Syringe SC SCH (10:45)
[2017-02-18 20:09] VITALS: RESP 20
[2017-02-19] MEDS: HYDROmorphone 2 mg/ml ISec IVP PRN ×5 (01:27→23:08)
[2017-02-19] MEDS: Enoxaparin 40 mg Syringe SC SCH (10:07)
[2017-02-19] MEDS: POLYETHYLENE GLYCOL 3350 17 GM/Dose PACKET PO SCH (10:07)
--- NOTE | 2017-02-19 10:54 | DS ---
I saw her resting comfortably in bed. She has some pain. She is getting medicated. She is in good spirits. She cannot wait to go anywhere, waiting for her insurance company to allow us to send her t o a facility. She wants to go to [facility] because it is close to family, waiting for this to be arr anged. PHYSICAL EXAMINATION: VITAL SIGNS: 98.2 temp, 75 pulse, 96/58 blood pressure, 20 respiratory rate, 97% O2 sat on room air. HEENT: Head is atraumatic, normocephalic. Throat is moist. NECK: Supple. HEART: Regular rate. LUNGS: Decreased breath sounds, but clear. I asked her to take deep breaths, use incentive spiromet ry to prevent pneumonia. ABDOMEN: Soft, morbidly obese, nontender. She moved her bowels. EXTREMITIES: Left side of the extremities are bandaged and wrapped up. She is status post ORIF of l eft arm and left leg. She is eager to go to physical therapy. LABORATORY DATA: Last labs on 02/18 because I though she was being discharged, she did well. There i s a discharge in already. I will put labs for tomorrow just in case she does not go today. As far as I am concerned, she can be discharged today to rehab before she will go home. I will discu ss it with case management and public health social worker. Sreekanth Guerra DO cc: [id number] TT: 02/19/2017 10:53:54 tn
[2017-02-20] MEDS: HYDROmorphone 2 mg/ml ISec IVP PRN (05:13)
[2017-02-20 07:46] LABS: ALKALINE PHOSPHATASE 122 U/L (38-133); ALT/SGPT 51 U/L (7-56); AST/SGOT 58 U/L (15-39); BILIRUBIN,TOTAL 0.5 mg/dL (0.2-1.3); BLOOD UREA NITROGEN 11 mg/dL (7-21); CALCIUM 9.5 mg/dL (8.4-10.5); CARBON DIOXIDE 28 mmol/L (21-33); CHLORIDE 100 mmol/L (95-110); GFR AFRICAN-AMERICAN > 60; GLUCOSE,RANDOM 89 mg/dL (70-110); POTASSIUM 4.3 mmol/L (3.6-5.0); SODIUM 136 mmol/L (132-148); TOTAL PROTEIN 7.6 g/dL (5.8-8.3)
[2017-02-20 07:50] LABS: HEMATOCRIT 30.1 % (36.0-48.0); MEAN CORPUSCULAR HEMOGLOBIN 28.3 pg (25.0-35.0); MEAN CORPUSCULAR HGB CONC 32.6 g/dl (31.0-37.0); MEAN PLATELET VOLUME 8.7 fl (7.0-11.0); RED CELL DISTRIBUTION WIDTH 13.7 % (11.5-14.5); WHITE BLOOD COUNT 6.9 10^3/ul (4.5-11.0)
[2017-02-20] MEDS: HYDROmorphone 1 mg/ml ISec IVP PRN ×4 (08:27→22:05)
[2017-02-20] MEDS: POLYETHYLENE GLYCOL 3350 17 GM/Dose PACKET PO SCH (10:18)
[2017-02-20] MEDS: Enoxaparin 40 mg Syringe SC SCH (10:19)
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
[2017-02-21] MEDS: HYDROmorphone 1 mg/ml ISec IVP PRN ×2 (03:04→07:50)
[2017-02-21 08:04] LABS: ALB/GLOB RATIO 1.1 (1.1-1.8); ALKALINE PHOSPHATASE 131 U/L (38-133); ALT/SGPT 55 U/L (7-56); AST/SGOT 45 U/L (15-39); BILIRUBIN,TOTAL 0.4 mg/dL (0.2-1.3); BLOOD UREA NITROGEN 10 mg/dL (7-21); CALCIUM 9.7 mg/dL (8.4-10.5); CARBON DIOXIDE 29 mmol/L (21-33); CHLORIDE 101 mmol/L (95-110); GFR AFRICAN-AMERICAN > 60; GLUCOSE,RANDOM 91 mg/dL (70-110); POTASSIUM 4.4 mmol/L (3.6-5.0); SODIUM 137 mmol/L (132-148); TOTAL PROTEIN 7.5 g/dL (5.8-8.3)
[2017-02-21 08:19] LABS: HEMATOCRIT 30.7 % (36.0-48.0); MEAN CELL VOLUME 86.7 fL (80.0-105.0); MEAN CORPUSCULAR HEMOGLOBIN 28.8 pg (25.0-35.0); MEAN CORPUSCULAR HGB CONC 33.2 g/dl (31.0-37.0); MEAN PLATELET VOLUME 8.8 fl (7.0-11.0); RED CELL DISTRIBUTION WIDTH 13.8 % (11.5-14.5); WHITE BLOOD COUNT 8.3 10^3/ul (4.5-11.0)
--- NOTE | 2017-02-21 08:34 | DS ---
I found out that she is going to be discharged today to [facility]. They finally got a bed and agreem ent with the insurance company. MEDICATIONS: She is on Colace, Dilaudid, Lovenox, MiraLax, Reglan, Silvadene, Tylenol, Ultram, and Z ofran. PHYSICAL EXAMINATION: VITAL SIGNS: Temp 97.3, 74 pulse, 136/78 blood pressure, 20 respiratory rate, 99% O2 sat on room air . HEAD: Atraumatic, normocephalic. HEART: Regular rate. LUNGS: Decreased breath sounds, but clear. ABDOMEN: Soft, obese, nontender. EXTREMITIES: Left arm, left leg, status post ORIF and bandaged. MEDICATIONS: She is going to go on Colace, Lovenox, MiraLax, Reglan, Silvadene, Tylenol, Ultram, Zof ran. LABORATORY DATA: She has an 8.3 white count, 10.2 hemoglobin, 30.5 hematocrit with 639 platelets. S odium 137, potassium 4.4, BUN 10, creatinine 0.7. GFR is greater than 60. Sugar is 91. Calcium is 9.7. Total bili is 0.4. AST is 45. ALT is 55, alk phos 131, total protein 7.5. She is discharged today to [facility]. I will be seeing her over there. Sreekanth Guerra DO cc: [id number] TT: 02/21/2017 08:34:17 sabina
[2017-02-21 09:47] VITALS: BP 113/70; PULSE 72; TEMP 98.4; O2SAT 96
[2017-02-21] MEDS: POLYETHYLENE GLYCOL 3350 17 GM/Dose PACKET PO SCH (10:17)
[2017-02-21] MEDS: Enoxaparin 40 mg Syringe SC SCH (10:17)
== END 2017-02-21 15:06 | DRG 483 ==
LOC: ED 13:47 → ERH 18:30 → 5RSO 23:10
PROVIDERS: ADMIT Family Medicine; ATTEND Family Medicine
PROC: 0RRM0JZ Replacement of Left Elbow Joint with Synthetic Substitute, Open Approach (ICD-10-PCS; 2017-02-02)
PROC: 0PSL04Z Reposition Left Ulna with Internal Fixation Device, Open Approach (ICD-10-PCS; principal; 2017-02-02 11:00)
PROC: 0QSH04Z Reposition Left Tibia with Internal Fixation Device, Open Approach (ICD-10-PCS; 2017-02-12)
PROC: 0SQD0ZZ Repair Left Knee Joint, Open Approach (ICD-10-PCS; 2017-02-12)
DX: S82.142A Displaced bicondylar fracture of left tibia, initial encounter for closed fracture (principal); A41.9 Sepsis, unspecified organism; L89.212 Pressure ulcer of right hip, stage 2; J18.9 Pneumonia, unspecified organism; I10 Essential (primary) hypertension; D64.9 Anemia, unspecified; S52.272A Monteggia's fracture of left ulna, initial encounter for closed fracture; J98.11 Atelectasis; J95.89 Other postprocedural complications and disorders of respiratory system, not elsewhere classified; S52.122A Displaced fracture of head of left radius, initial encounter for closed fracture; F51.02 Adjustment insomnia; Z68.34 Body mass index [BMI] 34.0-34.9, adult; V03.10XA Pedestrian on foot injured in collision with car, pick-up truck or van in traffic accident, initial encounter; Y92.481 Parking lot as the place of occurrence of the external cause; Y93.01 Activity, walking, marching and hiking; F32.89 Other specified depressive episodes; K59.00 Constipation, unspecified; K80.20 Calculus of gallbladder without cholecystitis without obstruction; R33.9 Retention of urine, unspecified; S50.02XA Contusion of left elbow, initial encounter; S80.02XA Contusion of left knee, initial encounter; Y95 Nosocomial condition; Z74.01 Bed confinement status; Z80.1 Family history of malignant neoplasm of trachea, bronchus and lung; Z80.3 Family history of malignant neoplasm of breast; R40.2412 Glasgow coma scale score 13-15, at arrival to emergency department; S70.221A Blister (nonthermal), right hip, initial encounter; E66.01 Morbid (severe) obesity due to excess calories; R07.89 Other chest pain

== ENCOUNTER 2018-01-15 12:06 | Emergency (ER) | payer OTHER ==
[2018-01-15 12:06] VITALS: BMI 34.3
[2018-01-15 12:18] VITALS: TEMP 98.8
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
--- NOTE | 2018-01-15 13:51 | RAD ---
PROCEDURE: Radiographs of the left elbow. HISTORY: left elbow pain COMPARISON: 02.02.17 FINDINGS: BONES: Stable findings following open reduction internal fixation. No evidence of orthopedic hardware failure. JOINTS: Normal. No osteoarthritis. SOFT TISSUES: Normal. JOINT EFFUSION: None. OTHER FINDINGS: None IMPRESSION: No significant or acute findings to account for/ related to the clinical presentation. No significant interval change compared to the prior examination(s).
[2018-01-15 14:24] VITALS: BP 142/87; PULSE 80; RESP 17; O2SAT 100
== END 2018-01-15 14:22 | disposition home or self-care (01) ==
LOC: ED 12:06
DX: M25.522 Pain in left elbow (principal); I10 Essential (primary) hypertension
CPT/HCPCS: 73080; 96372; 99284; J1885